=== PATIENT | male | born 1975 | race Caucasian/White ===

== ENCOUNTER 2018-06-11 20:28 | Emergency (ER) | payer OTHER ==
[~2018-06-11] VITALS: Ht 172.7 cm; Wt 88.9 kg
--- OUTSIDE RECORDS SUMMARY | 2018-06-11 20:31 | XMS REPORT ---
Author Author Valerie Reardon [facility] eClinical[employer] Address Unknown Phone Unavailable Care Team Providers Care Toll Bridge Operator Name Role Phone Valerie Reardon Unavailable Allergies, Adverse Reactions, Alerts Substance Reaction Event Type N.K.D.A. 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 [facility] May 21, 2016 cough [facility] May 27, 2016 Problems Problem Type Condition ICD-9 Code Onset Dates Condition Status Assessment Cough R05 Active Assessment Acute URI J06.9 Active Medications Medication Code System Code Instructions Start Date End Date Status Dosage Bromfed DM MEDISPAN [address]-31 30-2-10 MG/5ML Orally every 6 hrs prn May 27, 2016 Jun 03, 2016 Active 10 ml as needed Vitamin C MEDISPAN [address]-68 250 MG Orally Once a day Active 1 [facility] [address]73 500 MG Orally every 12 hrs May 21, 2016 May 31, 2016 Active 1 tablet Social History Social History Element Qualifiers Date 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 2 girls May 27, 2016 Flu Vaccine: . never May 27, 2016 Tobacco Use: . Are you a: never smoker May 27, 2016 Depression Screening: . negative May 27, 2016 Use of recreational / street drugs? . Answer: No May 27, 2016 Do you have pets? . Status: No May 27, 2016 Ethnicity . Status , Is lao your primary language? Yes May 27, 2016 Marital Status: single. May 27, 2016 Caffeine intake? . Status: Yes, What type: Soft Drinks May 27, 2016 Do you exercise? . Answer: No May 27, 2016 Pneumoccocal Vaccine . No May 27, 2016 Do you drink alcohol? . Status: Yes, Type: Beer, How often? Socially, How much? Socially May 27, 2016 Family history Qualifier Description Comment Date Reported Maternal Grandmother Comment not available May 27, 2016 Paternal Grandmother Comment not available May 27, 2016 Siblings alive Comment not available May 27, 2016 Maternal Grandfather Comment not available May 27, 2016 Children Comment not available May 27, 2016 Father alive Comment not available May 27, 2016 Paternal Grandfather Comment not available May 27, 2016 Mother alive Comment not available May 27, 2016 Other: Comment not available May 27, 2016 Vital Signs Date/Time: May 27, 2016 Weight 197 lbs Height 68 in Temperature 98.4 F Cardiac Monitoring Heart Rate 76 /min Blood Pressure Diastolic 84 mm Hg Blood Pressure Systolic 126 mm Hg Results DECADRON 1MGx4 Summary Purpose eClinicalWorks Submission
--- OUTSIDE RECORDS SUMMARY | 2018-06-11 20:31 | XMS REPORT | Continuity of Care Document ---
Author Author [facility] Interface Address Unknown Phone Unavailable Problems Problem Status Onset Date Classification Date Reported Comments Source Upper respiratory tract infection, unspecified type Active Diagnosis 05/26/2016 [facility] Cough Active Diagnosis 05/29/2016 [facility] Acute URI Active Diagnosis 05/29/2016 [facility] Medications Medication Details Route Status Patient Instructions Ordering Provider Order Date Source Bromfed DM 10 ml as needed Orally Active 30-2-10 MG/5ML Orally every 6 hrs prn [facility] 05/27/2016 [facility] Amoxicillin 1 tablet Orally Active 500 MG Orally every 12 hrs [facility] 05/21/2016 [facility] Vitamin C 1 tablet Orally Active 250 MG Orally Once a day [facility] Allergies, Adverse Reactions, Alerts Substance Category Reaction Severity Reaction type Status Date Reported Comments Source N.K.D.A. Adverse Reaction Info Not Available Adverse Reaction Active 05/27/2016 [facility] Immunizations Immunization Date Given Site Status Last Updated Comments Source Results Order Name Results Value Reference Range Date Interpretation Comments Source Vital Signs Vital Sign Value Date Comments Source Weight 197 05/27/2016 [facility] Height 68 05/27/2016 [facility] Temperature Oral (F) 98.4 F 05/27/2016 [facility] Heart Rate 76 05/27/2016 [facility] Diastolic (mm Hg) 84 05/27/2016 [facility] Systolic (mm Hg) 126 05/27/2016 [facility] Weight 199 05/21/2016 [facility] Height 68 05/21/2016 [facility] Heart Rate 88 05/21/2016 [facility] Diastolic (mm Hg) 83 05/21/2016 [facility] Systolic (mm Hg) 122 05/21/2016 [facility] Encounters Location Location Details Encounter Type Encounter Number Reason For Visit Attending Provider ADM Date DC Date Status Source [facility] 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
--- OUTSIDE RECORDS SUMMARY | 2018-06-11 20:31 | XMS REPORT ---
Author Author Aleksandra Haywood Organization eClinicalWorks Address Unknown Phone Unavailable Care Team Providers Care Spike Machine Operator Name Role Phone Aleksandra Haywood CP Unavailable Allergies, Adverse Reactions, Alerts Substance Reaction Event Type N.K.D.A. 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 2 girls May 21, 2016 Tobacco Use: . Are you a: never smoker May 21, 2016 Use of recreational / street drugs? . Answer: No May 21, 2016 Flu Vaccine: . never May 21, 2016 Do you have pets? . Status: No May 21, 2016 Marital Status: single. May 21, 2016 Caffeine intake? . Status: Yes, What type: Soft Drinks May 21, 2016 Do you exercise? . Answer: No May 21, 2016 Do you drink alcohol? . Status: Yes, Type: Beer, How often? Socially, How much? 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
[2018-06-12] MEDS ORDERED: TETANUS/DIPHTHERIA TOX ADULT 0.5 ML SYR IM ONE
== END 2018-06-11 21:18 | disposition home or self-care (01) ==
LOC: FSED 20:28
DX: S00.83XA Contusion of other part of head, initial encounter (principal); S00.33XA Contusion of nose, initial encounter; Y04.0XXA Assault by unarmed brawl or fight, initial encounter; Y92.488 Other paved roadways as the place of occurrence of the external cause; I10 Essential (primary) hypertension
CPT/HCPCS: 90471